=== PATIENT | female | born 1990 | race Two or more races ===

== ENCOUNTER 2020-05-23 06:25 | Inpatient (IN) ==
[2020-05-23] MEDS ORDERED: PITOCIN ONE (06:36)
[2020-05-23] MEDS ORDERED: D5LR 1L W PITOCIN 10 UNITS/L 10 UNITS/1,000 ML BAG IV ONE (06:37)
[2020-05-23] MEDS ORDERED: BETADINE SOLN ONE (06:37)
[2020-05-23] MEDS ORDERED: D5 1/2 NS 1L W PITOCIN 20 UNITS/L 20 UNITS/1,000 ML BAG IV ONE ×2 (06:37→20:52)
[2020-05-23] MEDS: D5 1/2 NS 1000 ML 1,000 ML IV ONE ×2 (07:00→08:07)
[2020-05-23] MEDS: D5 1/2 NS 1000 ML 1,000 ML IV SCH ×2 (07:00→16:00)
[2020-05-23] MEDS ORDERED: MORPHINE SULFATE INJ 2 MG INJ IVP PRN (07:08)
[2020-05-23] MEDS ORDERED: DILAUDID INJ IVP PRN (07:08)
[2020-05-23] MEDS ORDERED: PITOCIN IVP ONE (07:08)
[2020-05-23] MEDS ORDERED: D5LR 1L W PITOCIN 10 UNITS/L 10 UNITS/1,000 ML BAG IV PRN (07:08)
[2020-05-23] MEDS ORDERED: REGLAN INJ 10 MG VIAL IVP PRN (07:08)
[2020-05-23] MEDS ORDERED: PHENERGAN INJ 25 MG IM PRN ×2 (07:08→20:28)
[2020-05-23 07:41] LABS: BILIRUBIN,URINE NEGATIVE (NEGATIVE); BLOOD/HEMOGLOBIN,URINE NEGATIVE (NEGATIVE); GLUCOSE, URINE NEGATIVE (NEGATIVE); KETONES,URINE NEGATIVE (NEGATIVE); LEUKOCYTE ESTERASE ,URINE 3+ (NEGATIVE); NITRITES,URINE NEGATIVE (NEGATIVE); PROTEIN,URINE NEGATIVE (NEGATIVE); UROBILINOGEN,URINE NORMAL (NORMAL)
[2020-05-23 07:42] LABS: APPEARANCE,URINE HAZY (CLEAR); BACTERIA,URINE TRACE /HPF (NEGATIVE); COLOR,URINE YELLOW (YELLOW); RBC,URINE 0-2 /HPF (0-3); SQUAMOUS EPITHELIAL CELL,UR MANY /HPF (NEGATIVE)
[2020-05-23 07:54] LABS: BASOPHILS % (AUTO) 0.4 % (0.2-1.0); EOSINOPHILS # (AUTO) 0.1 x10^3/uL (0.0-0.2); EOSINOPHILS % (AUTO) 1.1 % (0.9-2.9); HEMATOCRIT 35.4 % (36.0-47.0); HEMOGLOBIN 11.7 g/dL (12.0-16.0); LYMPHOCYTES # (AUTO) 2.5 X10^3/uL (1.3-2.9); LYMPHOCYTES % (AUTO) 30.7 % (21.0-51.0); MEAN CORPUSCULAR HEMOGLOBIN 30.6 pg (27.0-34.0); MEAN CORPUSCULAR HGB CONC 33.2 g/dL (33.0-35.0); MONOCYTES # (AUTO) 0.5 x10^3/uL (0.3-0.8); MONOCYTES % (AUTO) 6.4 % (0.0-13.0); NEUTROPHILS % (AUTO) 61.4 % (42.0-75.0); PLATELET COUNT 243 X10^3/uL (150.0-450.0); RED BLOOD COUNT 3.84 X10^6/uL (3.5-5.4); RED CELL DISTRIBUTION WIDTH 13.2 % (11.6-16.5); WHITE BLOOD COUNT 8.1 X10^3/uL (3.6-10.0)
[2020-05-23 08:02] LABS: BLOOD UREA NITROGEN 12 mg/dL (7-18); CALCIUM 8.7 mg/dL (8.5-10.1); CARBON DIOXIDE 18.2 mmol/L (21-32); CHLORIDE 103 mmol/L (98-107); CREATININE 0.57 mg/dL (0.55-1.02); SODIUM 135 mmol/L (136-145); eGFR NON BLACK RACES > 60 (>60)
[2020-05-23] MEDS ORDERED: STADOL INJ ONE ×3 (12:06→19:00)
[2020-05-23] MEDS: STADOL INJ IVP PRN ×3 (12:10→19:00)
[2020-05-23] MEDS ORDERED: D5 1/2 NS 1000 ML 1,000 ML IV ONE (15:10)
[2020-05-23] MEDS ORDERED: MOTRIN TAB 800 MG PO PRN (20:28)
[2020-05-23] MEDS ORDERED: D5 1/2 NS 1000 ML 1,000 ML with PITOCIN 20 UNITS IV SCH ×2 (21:00)
[2020-05-23] MEDS ORDERED: MILK OF MAGNESIA PO PRN (21:26)
[2020-05-23] MEDS ORDERED: AMBIEN PO PRN (21:26)
[2020-05-23] MEDS ORDERED: DERMOPLAST PAIN RELIEF SPRAY TOP PRN (21:26)
[2020-05-24 06:14] LABS: HEMATOCRIT 32.3 % (36.0-47.0); HEMOGLOBIN 10.9 g/dL (12.0-16.0)
[2020-05-24] MEDS: PRENATAL PLUS PO SCH (09:19)
[2020-05-25] MEDS: PRENATAL PLUS PO SCH (08:27)
[2020-05-25] MEDS ORDERED: ADACEL or BOOSTRIX TDaP VACCINE IM ONE ×2 (10:31→10:35)
[2020-05-25 10:43] VITALS: BP 105/66
== END 2020-05-25 11:35 | disposition home or self-care (01) | DRG 807 ==
LOC: LD 06:25 → MED/SURG 21:37
PROVIDERS: ADMIT Obstetrics & Gynecology Obstetrics; ATTEND Obstetrics & Gynecology Obstetrics
DX: O70.0 First degree perineal laceration during delivery; Z3A.39 39 weeks gestation of pregnancy; Z37.0 Single live birth; O26.893 Other specified pregnancy related conditions, third trimester; Z23 Encounter for immunization